=== PATIENT | male | born 1995 | race Caucasian/White ===

== ENCOUNTER 2024-01-20 22:21 | Emergency (ER) | payer SELFPAY ==
[~2024-01-20] VITALS: Ht 175.3 cm; Wt 84.4 kg
[2024-01-20 22:23] VITALS: BP 130/89; PULSE 89; RESP 18; TEMP 97.6; O2SAT 97
== END 2024-01-20 22:43 ==
LOC: MED 22:21
DX: Z02.89 Encounter for other administrative examinations (principal); V49.88XA Car occupant (driver) (passenger) injured in other specified transport accidents, initial encounter; Y93.89 Activity, other specified; Y92.89 Other specified places as the place of occurrence of the external cause; Y99.8 Other external cause status
CPT/HCPCS: 99283